=== PATIENT | female | born 1945 | race Caucasian/White ===

== ENCOUNTER 2023-06-09 20:49 | Outpatient (REF) | payer MEDICARE, SELFPAY | END 2023-06-09 20:50 | disposition home or self-care (01) | LOC: LBN 20:49 | PROVIDERS: Visit Provider Physician Assistant | DX: S71.101A Unspecified open wound, right thigh, initial encounter (principal) | CPT/HCPCS: 87077; 87186; 87070; 87205 ==

== ENCOUNTER 2023-07-12 21:52 | Outpatient (REF) | payer MEDICARE, SELFPAY ==
[2023-07-12 22:06] LABS: Abs Immature Grans 0.03 10^3/uL (0.0-0.06); Absolute Basophil Count 0.08 10^3/uL (0.0-0.2); Absolute Lymphocyte Count 1.31 10^3/uL (1.2-3.4); Absolute Monocyte Count 0.61 10^3/uL (0.1-0.8); Absolute Neutrophil Count 5.68 10^3/uL (1.2-6.7); Eosinophils % 3.7; HCT 39.7 % (36.0-46.0); HGB 12.3 g/dL (11.2-15.7); Immature Grans % 0.4; Lymphocytes % 16.4; MCH 28.9 pg (27.0-33.0); MCV 93 fL (80-95); MPV 9.5 fL (8.0-11.0); Monocytes % 7.6; Neutrophils % 70.9; Platelet Count 637 10^3/uL (130-400); RBC 4.26 10^6/uL (3.93-5.22); RDW 13.6 % (11.7-14.6); RDW-SD 46.4 fL; WBC 8.01 10^3/uL (4.4-10.8)
[2023-07-12 22:27] LABS: ALT 15 U/L (14-59); AST 16 U/L (15-37); Albumin 3.7 g/dL (3.4-5.0); Alkaline Phosphatase 209 U/L (46-116); Anion Gap 7.8 mmol/L (3-11); BUN 12 mg/dL (7-18); Bilirubin, Total 0.4 mg/dL (0.2-1.0); CO2 28.2 mmol/L (21.0-32.0); CREATININE 0.6 mg/dL (0.55-1.02); Calcium 10.1 mg/dL (8.5-10.1); Chloride 101 mmol/L (98-107); Estimated GFR 90.68 (mL/min/1.73m2); FREE T4 1.56 ng/dL (0.76-1.46); Glucose 95 mg/dL (74-106); Potassium 4.2 mmol/L (3.5-5.1); Sodium 137 mmol/L (136-145); TSH 6.39 uIU/mL (0.36-3.74); Total Protein 7.6 g/dL (6.4-8.2)
[2023-07-12 23:07] LABS: Vitamin B12 230 pg/mL (193-986)
== END 2023-07-12 21:53 | disposition home or self-care (01) ==
LOC: LBN 21:52
PROVIDERS: Visit Provider Internal Medicine
DX: E03.9 Hypothyroidism, unspecified (principal); D62 Acute posthemorrhagic anemia; M97.01XD Periprosthetic fracture around internal prosthetic right hip joint, subsequent encounter; Z91.81 History of falling
CPT/HCPCS: 80053; 82607; 84439; 84443; 85025; 87086